=== PATIENT | female | born 1965 | race Caucasian/White ===

== ENCOUNTER → 2017-02-23 | Outpatient (CLI) | payer OTHER ==
--- NOTE | 2017-02-23 12:25 | ECHOF ---
Referral Reason:R07.89 chest paijn R01.1 cardiac murmur MEASUREMENTS -------- HEIGHT: 160.0 cm WEIGHT: 71.7 kg BP: 111/69 RVIDd: 3.2 cm (< 3.3) IVSd: 1.1 cm (0.6 - 1.1) LVIDd: 4.4 cm (3.9 - 5.3) LVPWd: 1.1 cm (0.6 - 1.1) IVSs: 1.8 cm LVIDs: 3.1 cm LVPWs: 1.5 cm LA Diam: 3.3 cm (2.7 - 3.8) LAESV Index (A-L): 25.47 ml/m Ao Diam: 2.7 cm (2.0 - 3.7) AV Cusp: 1.5 cm (1.5 - 2.6) LA Diam: 2.7 cm (2.7 - 3.8) MV EXCURSION: 13.883 mm (> 18.000) MV EF SLOPE: 103 mm/s (70 - 150) EPSS: 0.9 cm MV E Kole: 0.94 m/s MV DecT: 222 ms MV A Kole: 0.49 m/s MV E/A Ratio: 1.93 FINDINGS -------- Sinus rhythm. This was a technically good study. The left ventricular size is normal. There is borderline concentric left ventricular hypertrophy. Overall left ventricular systolic function is normal with, an EF between 55 - 60 %. The right ventricle is normal in size. Normal LA size by volume 22+/-6 ml/m2. The right atrium is normal in size. The aortic valve is trileaflet and appears structurally normal. The mitral valve leaflets are mildly thickened. Moderate mitral regurgitation is present. The tricuspid valve appears structurally normal. Trace tricuspid regurgitation present. Trace/mild (physiologic) pulmonic regurgitation. The aortic root size is normal. Normal inferior vena cava with normal inspiratory collapse consistent with estimated right atrial pressure of 5 mmHg. Echo free space may represent effusion or a pericardial fat pad. CONCLUSIONS -------- 1. Sinus rhythm. 2. The aortic root size is normal. 3. Normal inferior vena cava with normal inspiratory collapse consistent with estimated right atrial pressure of 5 mmHg. 4. Echo free space may represent effusion or a pericardial fat pad. 5. This was a technically good study. 6. There is borderline concentric left ventricular hypertrophy. 7. Overall left ventricular systolic function is normal with, an EF between 55 - 60 %. 8. Normal LA size by volume 22+/-6 ml/m2. 9. The mitral valve leaflets are mildly thickened. 10. Moderate mitral regurgitation is present. 11. Trace tricuspid regurgitation present. 12. Trace/mild (physiologic) pulmonic regurgitation. COIL WINDER: Ruth Goldman RDCS
--- NOTE | 2017-02-23 13:14 | EST ---
DATE OF SERVICE: 02/23/2017 AGE: 51Y SEX: F HT: 63 WT: 158 lbs. Protocol Marcus: Other: Lexiscan Cardiolite Stage: Dur. of Exercise: *Heart Rate Blood Pressure *Rest: 85 Rest: 127/75 * *Max. Achieved: 96 Maximum BP: 125/79 85% PMHR: 100% PMHR: *METS: INDICATIONS: Chest pain. MEDICATIONS: Atenolol. Baseline rhythm is a sinus mechanism, rate of 85, normal axis and intervals, nonspecific ST-T wave changes. Baseline blood pressure 127/75 mmHg. Patient received an injection of Lexiscan. Electrocardiograph monitoring revealed no evidence of diagnostic ischemic ST deviation Cardiolite was injected per protocol. CONCLUSION: 1. Nondiagnostic electrocardiograph stress testing. 2. Nuclear images will be reported separately.
--- NOTE | 2017-02-23 13:28 | NM ---
EXAMINATION TYPE: NM stress cardiolite complete DATE OF EXAM: 02/23/2017 1:16 PM COMPARISON: NONE HISTORY: Chest pain TECHNIQUE: After the intravenous administration of 10.8 mCi Tc 99m Sestamibi - Cardiolite resting SPECT images obtained 45 minutes post injection. The patient received 0.4mg Lexiscan, 27.3 mCi Tc99m Sestamibi - Stress images obtained 30 Minutes Post Injection. FINDINGS: Targeted heart rate was achieved during performance of the study. Review of stress and rest SPECT images demonstrates no distinct perfusion abnormality. Gated analysis shows normal wall motion with an estimated left ventricular ejection fraction of 50 %. Findings are suspicious for a small area of stress-induced reversibility apical anterior myocardium. IMPRESSION: Small subtle focal area of stress-induced reversibility apical anterior myocardium suggested. Correlate clinically. A Yellow message has been communicated to Sanjeev Mtz MD via the [employer] Critical Result system on 02/23/2017 1:26 PM, Message ID [id number]. MTDD
== END | disposition home or self-care (01) ==
LOC: RADNMMAIN 10:04
PROVIDERS: ATTEND Family Medicine
DX: R01.1 Cardiac murmur, unspecified (principal)
CPT/HCPCS: 93017; 93306; 78452; A9500

== ENCOUNTER 2017-03-20 06:34 | Day surgery (SDC) | payer OTHER ==
[2017-03-17 08:44] VITALS: BMI 28.3
[~2017-03-20 06:34] MED LIST: ALPRAZolam 0.25 MG TAB PO PRN; ALPRAZolam 0.5 MG TAB PO PRN; ASPIRIN 325 MG TAB PO STA; ATORVASTATIN 80 MG TAB PO STA; NITROGLYCERIN SL TABS 0.4 MG TAB SUBLINGUAL PRN; SODIUM CHLORIDE 0.9% 1,000 ML in EMPTY BAG 1 BAG IV ONE
[2017-03-20 06:54] VITALS: TEMP 98.2
[2017-03-20 07:04] LABS: Basophils # (A) 0.1 k/uL (0-0.2); Basophils % (A) 1 %; CH 34.7; CHCM 35.2; Eosinophils # (A) 0.4 k/uL (0-0.7); Eosinophils % (A) 4 %; HCT 40.4 % (34.0-46.0); HDW 2.46; HGB 14.2 gm/dL (11.4-16.0); Luc # (Auto) 0.23; Luc % (Auto) 2; Lymphocytes # (A) 3.2 k/uL (1.0-4.8); Lymphocytes % (A) 30 %; MCH 34.7 pg (25.0-35.0); MCHC 35.1 g/dL (31.0-37.0); MCV 98.8 fL (80.0-100.0); Mean Platelet Volume 7.3; Monocytes # (A) 0.4 k/uL (0-1.0); Monocytes % (A) 4 %; Neutrophils # (A) 6.3 k/uL (1.3-7.7); Neutrophils % (A) 59 %; RBC 4.09 m/uL (3.80-5.40); RDW 13.1 % (11.5-15.5); WBC 10.6 k/uL (3.8-10.6); WBC (Perox) 10.57
[2017-03-20] MEDS ORDERED: LIDOCAINE 2% INJ 20 MG/ML (20 ML MDV) ONE (07:16)
[2017-03-20] MEDS ORDERED: MIDAZOLAM 2 MG/2 ML VIAL ONE (07:23)
[2017-03-20] MEDS ORDERED: diphenhydrAMINE 50 MG/ML 1 ML VIAL ONE (07:24)
[2017-03-20] MEDS ORDERED: diphenhydrAMINE 50 MG/ML 1 ML VIAL IVP ONE (07:28)
[2017-03-20] MEDS ORDERED: MIDAZOLAM 2 MG/2 ML VIAL IV ONE (07:29)
[2017-03-20] MEDS ORDERED: LIDOCAINE 2% INJ 20 MG/ML SQ ONE ×2 (07:30→07:36)
[2017-03-20 07:31] LABS: Anion Gap 14 mmol/L; Blood Urea Nitrogen 3 mg/dL (7-17); Calcium 9.5 mg/dL (8.4-10.2); Carbon Dioxide 20 mmol/L (22-30); Chloride 108 mmol/L (98-107); Glucose 134 mg/dL (74-99); Non-African American GFR(MDRD) >60 (>60 ml/min/1.73 sqM); Potassium 3.6 mmol/L (3.5-5.1); Sodium 142 mmol/L (137-145)
[2017-03-20] MEDS ORDERED: HEPARIN SODIUM 1,000 UNIT/ML VIAL ONE (08:05)
[2017-03-20] MEDS ORDERED: NITROGLYCERIN 1000MCG/10ML SYRINGE INTRAARTER ONE (08:10)
[2017-03-20] MEDS ORDERED: ADENOSINE 90 MG in SODIUM CHLORIDE 0.9% 60 ML IVP ONE (08:18)
[2017-03-20] MEDS ORDERED: RX INFO: IV CONTRAST WAS GIVEN 1 EACH MISC MISCELLANE PRN (08:31)
[2017-03-20] MEDS ORDERED: HYDROcodone/APAP 7.5-325MG 1 EACH TAB PO PRN (08:32)
--- NOTE | 2017-03-20 08:32 | CC ---
DATE OF SERVICE: INDICATION: Chest pain with abnormal stress test. PROCEDURE NOTE: After obtaining informed consent, left heart catheterization and coronary angiogram were performed via the right femoral artery using standard Rebecca catheters. Patient tolerated the procedure well without any obvious immediate complications. FINDINGS: 1. HEMODYNAMICS: Left ventricular end-diastolic pressure is 4 to 6 mm, there is no significant gradient across the aortic valve. 2. LEFT VENTRICULOGRAM: Left ventriculogram is not performed. 3. ANGIOGRAPHIC DATA: LEFT MAIN CORONARY ARTERY: Left main coronary artery appears calcified but is free of significant stenosis. It divides into LAD and circumflex coronary artery. Both LAD and the circ are heavily calcified. Circ is a codominant vessel, shows mild diffuse disease involving the proximal circ and the AV groove circ. LAD is a large vessel that wraps around the apex of the heart and just passed the diagonal branch, there is a focal area of narrowing, which is borderline lesion, seems to be around 50% to 60% at best. Right coronary artery is a large codominant vessel that shows diffuse atherosclerotic disease involving proximal and distal RCA. They are all around 40% stenosis. CONCLUSION: Borderline lesion in the LAD in a patient with chest pain and abnormal stress test showing ischemia involving the apex. PLAN: Dr. Dean, the on-call main galley scullion, will perform an FFR of the lesion. If the lesion is significant, he will stent the vessel. If not, we will continue to treat her with medical therapy.
--- NOTE | 2017-03-20 08:35 | LTR ---
March 20, 2017 RE: Lena Pandey Dear Sanjeev: I performed cardiac catheterization on Lena Pandey. A detailed catheterization note is enclosed for your records. In brief, the cardiac catheterization revealed a moderate lesion involving the mid LAD. The lesion does not seem critical, it is a borderline lesion. Hence, patient will undergo an FFR and if the FFR is significant, she will undergo stent placement. Thank you for giving us the privilege to participate in the care of this pleasant lady. Will keep you informed of the progress. Sincerely, DONNA BARTHOLOMEW MD
[2017-03-20] MEDS ORDERED: IOHEXOL 350 MG/ML 125ML BOTTLE INJ ONE (08:38)
[2017-03-20] MEDS ORDERED: SODIUM CHLORIDE 0.9% 1,000 ML IV SCH (08:45)
[2017-03-20 08:56] VITALS: RESP 16
--- NOTE | 2017-03-20 14:48 | CE ---
DATE OF SERVICE: FRACTION FLOW RESERVE Mr. Pandey a 51-year-old female with known history of hypertension, hyperlipidemia, chronic tobacco use, who has been having episode of chest discomfort, underwent cardiac catheterization by Dr. Edge was found to have borderline lesion in the mid LAD. In view of that, recommendation was made regarding fractional flow reserve measurement. The procedure as well as the risks and complications were discussed with the patient who is in full understanding and agreement. PROCEDURE: Using the [place] FR4 guiding catheter, after obtaining images of the LAD the Doppler flow wire was advanced across the lesion positioned distally. Infusion of intravenous adenosine was performed per protocol. The fraction flow reserve was measured and was 82%. At that point, the guiding wire, the balloon and the guidewire were removed. The sheath was removed. Hemostasis was obtained with compression of the left groin. There were no immediate complications. Patient is returned to her room in stable condition. Of note, the patient received 5000 units of intravenous heparin. RESULT: Nonhemodynamic significant lesion in the mid left anterior descending artery. RECOMMENDATIONS: Patient will be continued on maximum medical therapy and depending on her progress, further recommendation will be made. Those findings and recommendations were discussed with the patient and her family and they are in full understanding and agreement.
--- NOTE | 2017-03-20 14:51 | LTR ---
March 20, 2017 CATHY GARZA MD RE: Katherin Lena D Dear Dr. Garza: I had the opportunity to perform fractional flow reserve measurement on Mrs. Pandey at [facility] on the 20 of March. A full copy of the procedure note will be forwarded to you. In brief, she was found to have nonhemodynamic significant lesion in the mid LAD and based on those findings, I recommend to continue medical therapy with aggressive coronary risk modifications you have initiated. Thank you again for allowing me the opportunity to participate in her care. Please feel free to call for any questions. Sincerely yours, RAND RICHARDSON MD
[2017-03-20 17:14] VITALS: BP 147/66; PULSE 78
[2017-03-20] MEDS ORDERED: VENLAFAXINE HCL 75 MG TAB PO SCH (21:00)
[2017-03-20] MEDS ORDERED: MONTELUKAST 10 MG TAB PO SCH (21:00)
[2017-03-21] MEDS ORDERED: ISOSORBIDE DINITRATE 10 MG TAB PO SCH (09:00)
[2017-03-21] MEDS ORDERED: LORATADINE 10 MG TAB PO SCH (09:00)
[2017-03-21] MEDS ORDERED: ATENOLOL 25 MG TAB PO SCH (09:00)
[2017-03-21] MEDS ORDERED: ATORVASTATIN 20 MG TAB PO SCH (09:00)
[2017-03-21] MEDS ORDERED: ASPIRIN 81 MG CHEW PO SCH (09:00)
== END 2017-03-20 18:00 | disposition home or self-care (01) ==
LOC: CATHCVL 06:34
PROVIDERS: ATTEND Internal Medicine Cardiovascular Disease
DX: I25.10 Atherosclerotic heart disease of native coronary artery without angina pectoris (principal); I10 Essential (primary) hypertension; F17.210 Nicotine dependence, cigarettes, uncomplicated; E78.2 Mixed hyperlipidemia; Z79.82 Long term (current) use of aspirin; Z79.899 Other long term (current) drug therapy
CPT/HCPCS: 93571; 93458; 80048; 85025; 99152; 99153 ×3; C1887; C1894; C1769; J2001; J2250; J1200; J0153; J1644; Q9967

== ENCOUNTER → 2017-03-23 | Outpatient (CLI) | payer OTHER ==
--- NOTE | 2017-03-23 11:58 | USB ---
Reason for exam: additional evaluation requested from prior study. History: Patient is nulliparous. Cyst aspiration of the right breast. Physical Findings: Nurse Summary: multiple scarring from boils (nurse jal). US Breast Workup LT Left breast ultrasound includes all four quadrants, the retroareolar region and axilla. Finding demonstrates several lesions too small to characterize measuring 0.3 x 0.2 x 0.3cm at 1 o'clock, 0.2 x 0.2 x 0.4cm at 2 o'clock, 0.4 x 0.6 x 0.4cm at 3 o'clock, 0.4cm at 3 o'clock and 0.3 x 0.2 x 0.5cm at 10 o'clock and a 1.1 x 0.6 x 0.6cm solid lesion at 2 o'clock, possible prominent lobe for which a 6 month follow up is recommended, if any suspicious changes, biopsy can be performed. These results were verbally communicated with the patient and result sheet given to the patient on 03/23/17. ASSESSMENT: Probably benign, BI-RAD 3 RECOMMENDATION: Follow-up diagnostic mammogram and ultrasound of the left breast in 6 months.
== END | disposition home or self-care (01) ==
LOC: RADUSWWP 08:22
PROVIDERS: ATTEND Family Medicine
DX: R92.8 Other abnormal and inconclusive findings on diagnostic imaging of breast (principal)

== ENCOUNTER → 2017-03-28 | Outpatient (CLI) | payer OTHER ==
--- NOTE | 2017-03-28 12:59 | US ---
EXAMINATION TYPE: US liver DATE OF EXAM: 03/28/2017 11:46 AM COMPARISON: NONE CLINICAL HISTORY: R16.0 Hepatomegaly. EXAM MEASUREMENTS: Liver Length: 18.9 cm Gallbladder Wall: 0.4 cm CBD: 0.6 cm Right Kidney: 10.9 x 3.6 x 4.9 cm Pancreas: visualized portions wnl Liver: measures 18.9 cm Gallbladder: wall measures 0.4 cm Evidence for sonographic Troncoso's sign: No CBD: measures 0.6 cm Right Kidney: No hydronephrosis or masses seen Visualized liver is heterogeneous in appearance. Evaluation for focal masses suboptimal due to the he terogeneity. No intrahepatic ductal dilatation is seen. IMPRESSION: Slight heterogeneity of liver could reflect fatty infiltration or underlying felt cellula r disease.
== END | disposition home or self-care (01) ==
LOC: RADUSWWP 10:53
PROVIDERS: ATTEND Family Medicine
DX: K76.89 Other specified diseases of liver (principal); R16.0 Hepatomegaly, not elsewhere classified
CPT/HCPCS: 76705

== ENCOUNTER → 2018-03-28 | Outpatient (CLI) | payer OTHER ==
[2018-03-28 17:08] LABS: Blood Urea Nitrogen 5 mg/dL (7-17)
--- NOTE | 2018-03-28 18:16 | CT ---
EXAMINATION TYPE: CT angio neck DATE OF EXAM: 03/28/2018 HISTORY: Carotid stenosis. COMPARISON: NONE CT DLP: 233.6 mGycm. Automated Exposure Control for Dose Reduction was Utilized. TECHNIQUE: CTA scan of the neck is performed with IV Contrast, patient injected with 65ml mL of Isov ue 370, axial images are obtained, coronal and sagittal reformatted images are reviewed. Three-D thea nstructed images are created on an independent workstation and reviewed. FINDINGS: Hypertrophic and degenerative change of the spine noted. Emphysematous changes involving th e lung apices noted. Single 4 mm pleural-based nodule left upper lobe. Ill-defined nodule right upper lobe posteriorly pleural-based likely postinflammatory. At the origin of the brachiocephalic artery there is an approximate 60% stenosis. Mild atheroscleroti c plaque involving left subclavian origin. Within the proximal left subclavian artery there is additi onal atherosclerotic plaque. There is dense calcification involving the carotid bifurcations bilaterally. On the right findings are suggestive of a greater than 70% severe stenosis involving the proximal rig ht ICA. Mild atherosclerotic plaque involving the external carotid artery. On the left there is a significant stenosis involving the origin of the external carotid artery. Ther e is moderate plaque involving the distal common carotid artery and proximal ICA with no definite sig nificant hemodynamic stenosis. Estimated stenosis proximal ICA of 50%. Left vertebral artery appears dominant. Visualized vertebrobasilar system is patent. Intracranial ath erosclerotic change involving the cavernous portion of the ICA noted bilaterally. IMPRESSION: 1. Severe greater than 70% stenosis proximal right ICA. Note is made there also appears to be soft pl aque and stenotic changes involving the origin of the brachiocephalic artery measuring approximately 50-60%. 2. Moderate atherosclerotic plaque distal CCA and proximal ICA on the left measuring 50% or less. 3. 4 mm left upper lobe pleural-based pulmonary nodule too small to characterize recommend 6 month fo llow-up CT chest.
== END | disposition home or self-care (01) ==
LOC: RADCTMAIN 15:58
PROVIDERS: ATTEND Internal Medicine Cardiovascular Disease
DX: I65.23 Occlusion and stenosis of bilateral carotid arteries (principal)
CPT/HCPCS: 82565; 84520; 70498; 36415; Q9967

== ENCOUNTER → 2018-07-06 | Outpatient (CLI) | payer OTHER ==
[2018-07-06 12:41] LABS: HCT 45.6 % (34.0-46.0); HGB 15.1 gm/dL (11.4-16.0); MCH 32.5 pg (25.0-35.0); MCHC 33.1 g/dL (31.0-37.0); MCV 98.1 fL (80.0-100.0); Mean Platelet Volume 6.5; Platelet Count 327 k/uL (150-450); RBC 4.65 m/uL (3.80-5.40); RDW 12.8 % (11.5-15.5); WBC 8.6 k/uL (3.8-10.6)
[2018-07-06 12:46] LABS: Appearance,Urine Cloudy (Clear); Bilirubin,Urine Negative (Negative); Blood,Urine Negative (Negative); Color,Urine Yellow; Glucose,Urine (UA) Negative (Negative); Ketones,Urine Negative (Negative); Leukocyte Esterase,Urine Large (Negative); Mucus,Urine Occasional /hpf; Nitrite,Urine Negative (Negative); Partial Thromboplastin Time 22.9 sec (22.0-30.0); Protein,Urine Negative (Negative); Prothrombin Time 9.8 sec (9.0-12.0); RBC,Urine 3 /hpf (0-5); Specific Gravity,Urine 1.012 (1.001-1.035); Squamous Epithelial Cell,Urine 4 /hpf (0-4); Urobilinogen,Urine <2.0 mg/dL (<2.0); WBC,Urine 13 /hpf (0-5)
[2018-07-06 12:59] LABS: ALT 32 U/L (9-52); AST 34 U/L (14-36); Albumin 4.6 g/dL (3.5-5.0); Alkaline Phosphatase 98 U/L (38-126); Anion Gap 11 mmol/L; Blood Urea Nitrogen 5 mg/dL (7-17); Calcium 10.1 mg/dL (8.4-10.2); Carbon Dioxide 26 mmol/L (22-30); Chloride 103 mmol/L (98-107); Glucose 103 mg/dL (74-99); Potassium 4.9 mmol/L (3.5-5.1); Sodium 140 mmol/L (137-145); Total Bilirubin 0.4 mg/dL (0.2-1.3); Total Protein 7.6 g/dL (6.3-8.2)
== END | disposition home or self-care (01) ==
LOC: LABPAT 11:45
PROVIDERS: ATTEND Orthopaedic Surgery
DX: Z01.812 Encounter for preprocedural laboratory examination (principal)
CPT/HCPCS: 36415; 80053; 81001; 85027; 85610; 85730; 87070

== ENCOUNTER 2018-07-17 08:20 | Inpatient (IN) | payer OTHER ==
[2018-07-09 12:12] VITALS: BMI 27.8
[~2018-07-17 08:20] MED LIST changes: +ACETAMINOPHEN TAB 500 MG TAB PO ONE; -ALPRAZolam 0.25 MG TAB PO PRN; -ALPRAZolam 0.5 MG TAB PO PRN; -ASPIRIN 325 MG TAB PO STA; -ATORVASTATIN 80 MG TAB PO STA; +DEXAMETHASONE SOD PHOSPHATE 10 MG/ML 1 ML VIAL IV ONE; +LIDOCAINE 1% 20 ML VIAL (10MG/ML) FOR IV START INTRADERMA PRN; +MELOXICAM 7.5 MG TAB PO ONE; +MIDAZOLAM 2 MG/2 ML VIAL IV PRN; -NITROGLYCERIN SL TABS 0.4 MG TAB SUBLINGUAL PRN; +ONDANSETRON 4 MG/2 ML VIAL IVP ONE; +ROPIVACAINE 246.25 MG, EPINEPHrine 0.5 MG, KETOROLAC 30 MG, cloNIDine HCL/PF 80 MCG, WA... MISCELLANE ONE; -SODIUM CHLORIDE 0.9% 1,000 ML in EMPTY BAG 1 BAG IV ONE; +TRANEXAMIC ACID 1,000 MG in SODIUM CHLORIDE 0.9% 50 ML IVPB ONE; +ceFAZolin IN SWFI 2 GM/20 ML SYRINGE IVP ONE
[2018-07-17] MEDS: LACTATED RINGERS 1,000 ML IV SCH ×2 (09:04→14:11)
[2018-07-17] MEDS ORDERED: TRANEXAMIC ACID 1,000 MG/10 ML VIAL ONE (09:45)
[2018-07-17] MEDS ORDERED: HEPARIN SODIUM,PORCINE 10,000 UNIT/ML 1 ML VIAL ONE (09:45)
[2018-07-17] MEDS ORDERED: SODIUM CHLORIDE 0.9% 100 ML BAG ONE (09:45)
[2018-07-17] MEDS ORDERED: fentaNYL (PF) 50 MCG/ML 2 ML AMP ONE (09:45)
[2018-07-17] MEDS ORDERED: PROPOFOL 10 MG/ML 20 ML VIAL IV ONE (09:45)
[2018-07-17] MEDS ORDERED: MIDAZOLAM 2 MG/2 ML VIAL ONE (09:45)
[2018-07-17] MEDS ORDERED: SODIUM CHLORIDE 0.9% IRRIG 1,000 ML BTL IRRIGATION ONE (09:45)
[2018-07-17] MEDS ORDERED: MAGNESIUM HYDROXIDE 2,400 MG/10 ML CUP PO PRN (09:51)
[2018-07-17] MEDS ORDERED: DIAZEPAM 5 MG TAB PO PRN ×2 (09:51)
[2018-07-17] MEDS ORDERED: HYDROmorphone 1 MG/ML 1 ML SYRINGE IVP PRN ×3 (09:51)
[2018-07-17] MEDS ORDERED: NALOXONE 0.4 MG/ML 1 ML VIAL IV PRN (09:51)
[2018-07-17] MEDS ORDERED: ONDANSETRON 4 MG/2 ML VIAL IVP PRN (09:51)
[2018-07-17] MEDS ORDERED: HYDROcodone/APAP 5-325MG 1 EACH TAB PO PRN (09:51)
[2018-07-17] MEDS ORDERED: ceFAZolin 3,000 MG in SODIUM CHLORIDE 0.9% IRRIGATIO 3,000 ML IRRIGATION ONE (10:22)
[2018-07-17] MEDS ORDERED: LACTATED RINGERS 1,000 ML IV ONE (10:59)
--- NOTE | 2018-07-17 12:11 | P.OP ---
Date of Procedure: 07/17/18 Preoperative Diagnosis: Severe osteoarthritis right hip Postoperative Diagnosis: Severe osteoarthritis right hip Procedure(s) Performed: Right total hip arthroplasty with a direct anterior approach Implants: Genao and nephew Polarstem size 3 standard Gen[employer] Nephew R3, 3 hole acetabular shell, 48 mm [employer]hew reflection 6.5 mm cancellus screw, 20 mm 2 [employer]hew R3, XLPE 20 acetabular liner Gen[employer] Nephew Oxinium femoral head 32 m, +0 All components were press-fit. The articulation is Oxinium on polyethylene. Anesthesia: spinal Surgeon: Fabian Sauer Back End Engineer #1: Kyra Kimbrough Estimated Blood Loss (ml): 200 (61 mL returned with Cell Saver) Pathology: other (Femoral head) Condition: stable Disposition: PACU Indications for Procedure: After failure of conservative treatment we discussed the surgical and nonsurgical treatment options at length. Patient wishes to proceed with a total hip arthroplasty with a direct anterior approach. Complications specific to this procedure were discussed at length, including but not limited to infection, leg length discrepancy, dislocation, and nerve injury. Patient is aware of all these complications and informed consent was obtained Operative Findings: Operative findings are consistent with severe osteoarthritis of the right hip Description of Procedure: Patient was seen and evaluated in the preoperative area, consent was reviewed, and the surgical site was marked with a skin marker. Patient was then brought to the operating room and given prophylactic antibiotics intravenously. 1 g of Tranexamic acid was also given. A spinal anesthetic was administered by the anesthesia department. The patient was then placed on the [place] table with the bony prominences well-padded. The hip area was then prepped and draped in usual sterile fashion. A universal timeout was then performed, which confirmed the patient's name, surgical site, ALLERGIES, and procedure being performed. Next the incision site was located at 1 cm distal and 1 cm lateral to the anterior superior iliac spine. The skin and subcutaneous tissues were sharply incised. Incision was carefully dissected down to the fascia overlying the tensor fascia tania muscle. This fascia was then incised in line with the incision. Next, using blunt finger dissection, the tensor fascia tania muscle was dissected off its investing fascia. The muscle was then carefully retracted laterally with a cobra retractor over the lateral neck of the femur. Next, the circumflex vessels were identified and cauterized using the AquaMantis device. The anterior hip capsule was then exposed. The capsule was then opened and an inverted T fashion. Cobra retractors were then placed intracapsularly. The proximal femur was then visualized. The femoral neck was then osteotomized appropriate level above the lesser trochanter. Small amount of traction was placed with the [place] table. A small wedge of bone was then removed from the remaining femoral head. Next, using a corkscrew femoral head was easily removed from the acetabulum. On gross visual inspection, the femoral head had complete loss of articular cartilage in multiple periarticular osteophytes. Attention was then turned to the acetabulum. the acetabulum was exposed and any remaining labrum was excised. Sequential reaming of the acetabulum was performed using fluoroscopic guidance. When the appropriate size was reached, a trial was then placed. The position and fit of the trial was checked with fluoroscopy. The trial was then removed. Then, using fluoroscopic guidance, the final implant was impacted at 20 of anteversion and 40 of abduction, and fully seated in the acetabulum. 2 screws were then placed in the acetabulum. Again fluoroscopy was used to check position of the screws. Next, the liner was then impacted, with a 20 elevated liner located in the anterior superior quadrant. Component locking was confirmed. Attention was then directed to the femur. With the aid of the [place] table, the femur was externally rotated to approximately 130, extended, and abducted under the opposite leg. A side hook was then placed under the proximal femur, and the side hook elevator was used to elevate the proximal femur. Retractors were then placed. A capsular release was performed, as well as a release of the conjoined tendon, which afforded excellent visualization of the proximal femur. Next, a box osteotome was used to lateralize the proximal femur. A tie in hand was then used to locate the femoral canal. Sequential broaching was then performed with appropriate size which afforded excellent fixation in the proximal femur. A trial was then placed with appropriate head and neck, and the hip was gently reduced with the aid of the [place] table. Fluoroscopy was then used to check position of the components, as well as to ensure equal leg lengths. The hip was then gently dislocated and the trials were then removed. Final implants were then impacted and the hip was again reduced. Final fluoroscopic x-rays confirmed that the components were in anatomic position, as well as equal leg lengths. The hip was also taken through range of motion, and found to be stable. The hip was then copiously irrigated with antibiotic solution with pulsatile lavage. The hip was then irrigated with Irrisept solution. The soft tissues were then injected with a ropivacaine solution, which consisted of 246.25 mg of ropivacaine, 0.5 mg of epinephrine, 30 mg of Toradol, 80 g of clonidine, and 48.45 mL of sterile water, for a total of 100 mL of fluid injected. A second dose of 1 g of Tranexamic acid was also given. the fascia was then closed with 2-0 strata fix suture. The subcutaneous tissue was closed with 3-0 Vicryl. The subcuticular tissue was closed with 3-0 strata fix suture. The skin was then closed with Dermabond glue and a sterile silver dressing. The patient was then transferred to the recovery room in stable condition. The customer assistant YAIR Cooney was required due to the complexity of surgery, and the need for skilled director surgical for positioning, draping, exposure, retraction, and closure of the wound.
[2018-07-17] MEDS: fentaNYL (PF) 50 MCG/ML 2 ML AMP IV PRN ×4 (12:20→13:32)
--- NOTE | 2018-07-17 12:31 | XR ---
EXAMINATION TYPE: XR Hip Limited RT DATE OF EXAM: 07/17/2018 CLINICAL HISTORY: Right hip pain and osteoarthritis. TECHNIQUE: Single AP portable view of right hip is obtained immediately postoperatively. COMPARISON: None. FINDINGS: Metallic hardware from right hip arthroplasty is seen and appears satisfactory in alignment and position. There is evidence of recent surgery with subcutaneous gas noted laterally. IMPRESSION: Metallic hardware from right hip arthroplasty is satisfactory in position.
--- NOTE | 2018-07-17 12:48 | FL ---
EXAMINATION TYPE: FL guidance operating room DATE OF EXAM: 07/17/2018 HISTORY: Flouroscopy time 1 minute and 13 seconds of fluoroscopy provided. IMPRESSION: 1. Fluoroscopy time.
[2018-07-17] MEDS: SODIUM CHLORIDE 0.9% 1,000 ML IV SCH ×2 (14:10→23:27)
[2018-07-17] MEDS: HYDROcodone/APAP 5-325MG 1 EACH TAB PO PRN ×2 (14:20→19:29)
[2018-07-17] MEDS: ceFAZolin IN SWFI 2 GM/20 ML SYRINGE IVP SCH ×2 (15:07→23:23)
[2018-07-17] MEDS: ASPIRIN 325 MG TAB PO SCH (20:28)
[2018-07-17] MEDS: VARENICLINE 1 MG TAB PO SCH (20:28)
[2018-07-17] MEDS: MONTELUKAST 10 MG TAB PO SCH (20:28)
[2018-07-17] MEDS: SENNOSIDES-DOCUSATE SODIUM 1 EACH TAB PO SCH (20:28)
[2018-07-18] MEDS: HYDROcodone/APAP 5-325MG 1 EACH TAB PO PRN ×4 (00:49→20:40)
[2018-07-18] MEDS: hydrOXYzine PAMOATE 25 MG CAP PO PRN ×2 (00:49→20:39)
[2018-07-18 07:28] LABS: Basophils % (A) 0 %; Eosinophils % (A) 0 %; HCT 34.6 % (34.0-46.0); Lymphocytes # (A) 1.5 k/uL (1.0-4.8); Lymphocytes % (A) 13 %; MCH 32.6 pg (25.0-35.0); MCV 98.8 fL (80.0-100.0); Mean Platelet Volume 6.4; Monocytes # (A) 0.6 k/uL (0-1.0); Monocytes % (A) 5 %; Neutrophils % (A) 81 %; Platelet Count 259 k/uL (150-450); RDW 12.6 % (11.5-15.5); WBC 11.2 k/uL (3.8-10.6)
[2018-07-18 07:40] LABS: HGB 11.4 gm/dL (11.4-16.0)
[2018-07-18 07:45] LABS: Anion Gap 8 mmol/L; Blood Urea Nitrogen 9 mg/dL (7-17); Calcium 8.8 mg/dL (8.4-10.2); Carbon Dioxide 22 mmol/L (22-30); Chloride 109 mmol/L (98-107); Glucose 113 mg/dL (74-99); Potassium 4.3 mmol/L (3.5-5.1); Sodium 139 mmol/L (137-145)
[2018-07-18] MEDS: LORATADINE 10 MG TAB PO SCH (08:11)
[2018-07-18] MEDS: ISOSORBIDE MONONITRATE ER 30 MG TAB.ER.24H PO SCH (08:11)
[2018-07-18] MEDS: ASPIRIN 325 MG TAB PO SCH ×2 (08:11→20:39)
[2018-07-18] MEDS: ATENOLOL 25 MG TAB PO SCH (08:11)
[2018-07-18] MEDS: ATORVASTATIN 20 MG TAB PO SCH (08:11)
[2018-07-18] MEDS: MELOXICAM 7.5 MG TAB PO SCH (08:11)
[2018-07-18] MEDS: DESVENLAFAXINE SUCCINATE 50 MG TAB.ER.24H PO SCH (08:11)
[2018-07-18] MEDS: VARENICLINE 1 MG TAB PO SCH ×2 (08:11→20:40)
--- NOTE | 2018-07-18 08:55 | P.PN ---
Subjective Progress Note Date: 07/18/18 This is a 52-year-old female who is status post right total hip arthroplasty. This is postoperative day #1. Patient is seen and evaluated at bedside with Dr. Fabian Sauer. Patient does complain of some numbness in the right leg. Patient states that she has been up and out of bed. Patient states that her pain is controlled. Patient denies any fever/chills, numbness, weakness, tingling, abdominal pain, shortness of breath or chest pain. Objective - Vital Signs Vital signs: Vital Signs Temp 98.1 F 07/18/18 07:10 Pulse 77 07/18/18 07:10 Resp 18 07/18/18 07:10 BP 135/68 07/18/18 07:10 Pulse Ox 96 07/18/18 07:10 Intake & Output 07/17/18 07/18/18 07/18/18 18:59 06:59 18:59 Intake Total 1401 1340 Output Total 200 Balance 1201 1340 Weight 71.214 kg Intake: IV 1401 Intake, IV Titration 1040 Amount Sodium Chloride 0.9% 1, 1040 000 ml @ 65 mls/hr IV . [id number] GEOVANI Rx#:[id number] Other 300 Output: Estimated Blood Loss 200 Other: # Voids 2 - Exam Vital signs are stable. Patient is in no acute distress and is alert and oriented 3. Calf is soft and nontender to palpation. Dressing is clean, dry, and intact. Patient has full foot and ankle motion without pain or difficulty. Neurovascular status and circulatory status are intact. - Labs CBC & Chem 7: 07/18/18 06:41 07/18/18 06:41 Labs: Abnormal Lab Results - Last 24 Hours (Table) 07/18/18 07/18/18 Range/Units 06:41 06:41 WBC 11.2 H (3.8-10.6) k/uL RBC 3.50 L (3.80-5.40) m/uL Neutrophils # 9.0 H (1.3-7.7) k/uL Chloride 109 H (98-107) mmol/L Creatinine 0.42 L (0.52-1.04) mg/dL Glucose 113 H (74-99) mg/dL Assessment and Plan (1) Primary osteoarthritis of right hip Current Visit: Yes Status: Acute Code(s): M16.11 - UNILATERAL PRIMARY OSTEOARTHRITIS, RIGHT HIP SNOMED Code(s): 503066721 (2) Status post total hip replacement, right Current Visit: Yes Status: Acute Code(s): Z96.641 - PRESENCE OF RIGHT ARTIFICIAL HIP JOINT SNOMED Code(s): 083528993881 Plan: Continue routine postop care. Continue antocoagulation with aspirin. Weightbearing as tolerated with a walker. Leave dressing in place for 10 days. Possible discharge home tomorrow.
[2018-07-18] MEDS: LACTATED RINGERS 1,000 ML IV SCH (09:09)
--- NOTE | 2018-07-18 09:12 | P.CONS ---
History of Present Illness - Reason for Consult Consult date: 07/18/18 Medical Management Requesting physician: Fabian Sauer - Chief Complaint s/p right DEONDRE - History of Present Illness 52-year-old female who underwent elective right total hip arthroplasty on 07/17/[address] Mtz was consulted for medical management. The patient was seen and examined postoperatively at the bedside. Patient states her pain is tolerable at this time. She does report numbness to her right lower extremity. She has been up ambulating to the bathroom but has not yet ambulated in the hallway. Patient is passing gas but has not had a bowel movement yet. She is tolerating a regular diet. Denies nausea or vomiting. Denies shortness of breath. Denies chest pain. Denies lightheadedness or dizziness. Denies fever or chills. Review of Systems Those systems with pertinent positive or pertinent negative responses have been documented in the HPI Past Medical History Past Medical History: Chest Pain / Angina, Hyperlipidemia, Hypertension, Myocardial Infarction (CA), Osteoarthritis (OA) Last Myocardial Infarction Date:: 07/2009 History of Any Multi-Drug Resistant Organisms: None Reported Past Surgical History: Heart Catheterization, Orthopedic Surgery Additional Past Surgical History / Comment(s): lt elbow, lt wrist, rt ovary and fallopian tube removed Past Anesthesia/Blood Transfusion Reactions: No Reported Reaction Past Psychological History: Depression Smoking Status: Current some day smoker Past Alcohol Use History: Occasional Additional Past Alcohol Use History / Comment(s): started smoking at age 15 smokes 1 pack/wk Past Drug Use History: None Reported - Past Family History Mother Family Medical History: No Reported History Medications and Allergies Home Medications Medication Instructions Recorded Confirmed Type Aspirin EC [Ecotrin Low Dose] 81 mg PO DAILY 03/17/17 07/17/18 History Atenolol [Tenormin] 25 mg PO DAILY 03/17/17 07/17/18 History Atorvastatin Calcium [Lipitor] 20 mg PO DAILY 03/17/17 07/17/18 History Cetirizine HCl [Zyrtec] 10 mg PO DAILY 03/17/17 07/17/18 History HYDROcodone/APAP 7.5-325MG [[place] 1 tab PO TID PRN 03/17/17 07/17/18 History 7.5-325] Montelukast Sodium [Singulair] 10 mg PO HS 03/17/17 07/17/18 History Methocarbamol [Robaxin] 1,000 mg PO QID PRN 07/09/18 07/17/18 History Desvenlafaxine [Pristiq ER] 100 mg PO DAILY 07/17/18 07/17/18 History Isosorbide Mononitrate ER [Imdur] 30 mg PO DAILY 07/17/18 07/17/18 History Varenicline [Chantix Continuing 1 mg PO BID 07/17/18 07/17/18 History Pack] Allergies Allergy/AdvReac Type Severity Reaction Status Date / Time No Known Allergies Allergy Verified 07/17/18 11:25 Physical Exam Vitals: Vital Signs Temp Pulse Resp BP Pulse Ox 07/18/18 07:10 98.1 F 77 18 135/68 96 07/18/18 00:34 98.2 F 85 16 147/65 96 07/17/18 20:00 97.3 F L 74 18 123/71 96 07/17/18 14:15 70 135/61 07/17/18 14:00 65 99/62 07/17/18 13:45 98.0 F 75 16 130/70 95 07/17/18 13:37 73 16 151/83 94 L 07/17/18 13:15 57 L 16 120/58 94 L 07/17/18 13:00 64 16 116/54 94 L 07/17/18 12:45 68 16 135/61 94 L 07/17/18 12:32 56 L 16 140/63 93 L 07/17/18 12:16 50 L 16 124/60 97 07/17/18 12:05 62 16 124/60 96 07/17/18 11:49 97.0 F L 73 16 146/67 98 Intake and Output 07/17/18 07/18/18 07/18/18 22:59 06:59 14:59 Intake Total 520 820 Balance 520 820 Intake: Intake, IV Titration 520 520 Amount Sodium Chloride 0.9% 1, 520 520 000 ml @ 65 mls/hr IV . [id number] GEOVANI Rx#:[id number] Other 300 Other: # Voids 2 2 GENERAL: This is a 52-year-old female in no apparent distress at the time of examination. Pleasant and cooperative. HEENT: Head is atraumatic, normocephalic. Pupils are equal, round, and reactive to light. Sclerae anicteric. Conjunctivae are clear. Mucus membranes of the mouth are moist. Neck is supple. RESPIRATORY: Clear to ausculation. No wheezes, rales, or rhonchi. No use of accessory muscles. Patient maintaining oxygen saturation greater than 92%. No chest wall tenderness is noted on palpation or with deep breathing. CARDIOVASCULAR: Regular rate and rhythm. S1 and S2 noted. No systolic or diastolic murmur auscultated. No JVD noted. No S3 or S4 noted. GASTROINTESTINAL: No distention noted. Abdomen soft and round. Normal active bowel sounds auscultated x 4 quadrants. No pain or tenderness noted upon palpation. INTEGUMENTARY: Dressing to right hip CDI. No drainage noted. Some surrounding ecchymosis. No cyanosis. No jaundice. No rashes noted. No cellulitis noted. EXTREMITIES: 2+ peripheral pulses. No evidence of peripheral edema. No calf tenderness noted. NEUROLOGIC: Cranial nerves II-XII intact. Numbness to right LE extremity. Motor strength intact. PSYCHIATRIC: Awake, alert, and oriented X 3. Appropriate affect. Intact judgement and insight. Results CBC & Chem 7: 07/18/18 06:41 07/18/18 06:41 Labs: Abnormal Lab Results - Last 24 Hours (Table) 07/18/18 07/18/18 Range/Units 06:41 06:41 WBC 11.2 H (3.8-10.6) k/uL RBC 3.50 L (3.80-5.40) m/uL Neutrophils # 9.0 H (1.3-7.7) k/uL Chloride 109 H (98-107) mmol/L Creatinine 0.42 L (0.52-1.04) mg/dL Glucose 113 H (74-99) mg/dL Assessment and Plan Plan: ASSESSMENT: Osteoarthritis, status post right total hip arthroplasty, POD #1 History of coronary artery disease with most recent cath in 2017 revealing moderate lesion in the LAD and medical therapy was advised Hypertension Hyperlipidemia Nicotine dependence History of depression PLAN: Continue postoperative care per orthopedics Pain control Activity as tolerated. Encourage ambulation PT/OT Anticoagulation with aspirin per orthopedics Home meds as appropriate Monitor labs GI prophylaxis: Pepcid 20 mg by mouth twice a day DVT prophylaxis: [place] hose and SCDs to bilateral lower extremities Monitor vital signs and address as appropriate Possible discharge home with home care tomorrow Thank you for this consultation We will continue to follow along with Lena during her hospitalization Nurse practitioner note has been reviewed by physician. Signing provider agrees with the documented findings, assessment, and plan of care.
[2018-07-18] MEDS ORDERED: HYDROmorphone 2 MG TAB PO PRN ×2 (15:38)
[2018-07-18] MEDS: SODIUM CHLORIDE 0.9% 1,000 ML IV SCH (16:41)
[2018-07-18] MEDS: HYDROmorphone 4 MG TABLET PO PRN (19:18)
[2018-07-18] MEDS: FAMOTIDINE 20 MG TAB PO SCH (20:39)
[2018-07-18] MEDS: SENNOSIDES-DOCUSATE SODIUM 1 EACH TAB PO SCH (20:39)
[2018-07-18] MEDS: MONTELUKAST 10 MG TAB PO SCH (20:40)
[2018-07-19] MEDS: hydrOXYzine PAMOATE 25 MG CAP PO PRN ×2 (01:56→07:47)
[2018-07-19] MEDS: HYDROcodone/APAP 5-325MG 1 EACH TAB PO PRN ×2 (01:56→07:46)
[2018-07-19] MEDS: HYDROmorphone 4 MG TABLET PO PRN (06:06)
[2018-07-19 07:44] VITALS: BP 145/75; PULSE 73; RESP 18; TEMP 98.7
[2018-07-19] MEDS: MELOXICAM 7.5 MG TAB PO SCH (07:47)
[2018-07-19] MEDS: FAMOTIDINE 20 MG TAB PO SCH (07:47)
[2018-07-19] MEDS: ATORVASTATIN 20 MG TAB PO SCH (07:48)
[2018-07-19] MEDS: ISOSORBIDE MONONITRATE ER 30 MG TAB.ER.24H PO SCH (07:48)
[2018-07-19] MEDS: ATENOLOL 25 MG TAB PO SCH (07:48)
[2018-07-19] MEDS: ASPIRIN 325 MG TAB PO SCH (07:48)
[2018-07-19] MEDS: LORATADINE 10 MG TAB PO SCH (07:49)
[2018-07-19] MEDS ORDERED: HYDROcodone/APAP 7.5-325MG 1 EACH TAB PO PRN ×2 (08:47)
--- NOTE | 2018-07-19 08:52 | P.DS ---
Providers Date of admission: 07/17/18 08:20 Expected date of discharge: 07/19/18 Attending physician: Fabian Sauer Consults: 07/17/18 09:51 Consult Physician Routine Consulting Provider: Sanjeev Mtz Consult Reason/Comments: medical management Do you want consulting provider notified?: Yes Primary care physician: Sanjeev Mtz - Discharge Diagnosis(es) (1) Primary osteoarthritis of right hip Current Visit: Yes Status: Acute (2) Status post total hip replacement, right Current Visit: Yes Status: Acute Hospital Course: This is a 52-year-old female with known history of degenerative arthritis of the right hip. The patient presents for evaluation. After discussion and consideration patient elects to proceed with total hip arthroplasty. The patient is seen preoperatively by Dr. Sauer and medically cleared for surgery by their primary care physician. Patient is admitted to [facility] on 07/17/2018 for total hip arthroplasty. The procedures performed without complication or sequelae. The patient is doing well postoperatively. Labs and vital signs are stable on day of discharge. On day of discharge patient's hip incision is healing well. There is minimal erythema. There is no drainage noted at this time. There is minimal soft tissue swelling to the hip and thigh. Patient has full foot and ankle motion without difficulty or pain. Neurovascular status to the right lower extremity is intact. Patient is discharged home in good condition. Please see med rec for accurate list of home medications. Plan - Discharge Summary Discharge Rx Participant: Yes New Discharge Prescriptions: New Aspirin 325 mg PO BID #60 tab HYDROcodone/APAP 7.5-325MG [[place] 7.5-325] 1 - 2 tab PO Q4-6H PRN #84 tab PRN Reason: Pain Sennosides [Senokot] 1 tab PO BID #60 tablet Continue Montelukast Sodium [Singulair] 10 mg PO HS Atenolol [Tenormin] 25 mg PO DAILY Atorvastatin Calcium [Lipitor] 20 mg PO DAILY Varenicline [Chantix Continuing Pack] 1 mg PO BID Desvenlafaxine [Pristiq ER] 100 mg PO DAILY Isosorbide Mononitrate ER [Imdur] 30 mg PO DAILY No Action Aspirin EC [Ecotrin Low Dose] 81 mg PO DAILY Cetirizine HCl [Zyrtec] 10 mg PO DAILY HYDROcodone/APAP 7.5-325MG [[place] 7.5-325] 1 tab PO TID PRN PRN Reason: Pain Methocarbamol [Robaxin] 1,000 mg PO QID PRN PRN Reason: muscle relaxer Discharge Medication List Aspirin EC [Ecotrin Low Dose] 81 mg PO DAILY 03/17/17 [History] Atenolol [Tenormin] 25 mg PO DAILY 03/17/17 [History] Atorvastatin Calcium [Lipitor] 20 mg PO DAILY 03/17/17 [History] Cetirizine HCl [Zyrtec] 10 mg PO DAILY 03/17/17 [History] HYDROcodone/APAP 7.5-325MG [[place] 7.5-325] 1 tab PO TID PRN 03/17/17 [History] Montelukast Sodium [Singulair] 10 mg PO HS 03/17/17 [History] Methocarbamol [Robaxin] 1,000 mg PO QID PRN 07/09/18 [History] Desvenlafaxine [Pristiq ER] 100 mg PO DAILY 07/17/18 [History] Isosorbide Mononitrate ER [Imdur] 30 mg PO DAILY 07/17/18 [History] Varenicline [Chantix Continuing Pack] 1 mg PO BID 07/17/18 [History] Aspirin 325 mg PO BID #60 tab 07/19/18 [Rx] HYDROcodone/APAP 7.5-325MG [[place] 7.5-325] 1 - 2 tab PO Q4-6H PRN #84 tab [Rx] Sennosides [Senokot] 1 tab PO BID #60 tablet 07/19/18 [Rx] Follow up Appointment(s)/Referral(s): Sanjeev Mtz MD [Primary Care Provider] - 2 Weeks Fabian Sauer DO [Doctor of Osteopathic Medicine] - 2 Weeks Activity/Diet/Wound Care/Special Instructions: Weightbearing as tolerated with walker Leave dressing intact. Dressing may be removed by home care nurse in 10 days. May shower with dressing on. Follow-up with [facility] in 2 weeks, please call with any questions or concerns [phone] Discharge Disposition: HOME WITH HOME HEALTH SERVICES
[2018-07-19] MEDS: VARENICLINE 1 MG TAB PO SCH (10:17)
[2018-07-19] MEDS: DESVENLAFAXINE SUCCINATE 50 MG TAB.ER.24H PO SCH (10:17)
[2018-07-19] MEDS: SODIUM CHLORIDE 0.9% 1,000 ML IV SCH (10:26)
== END 2018-07-19 11:15 | disposition home health service (06) | DRG 470 ==
LOC: 2ORMAIN 08:20 → 3SUR 11:37
PROVIDERS: ADMIT Orthopaedic Surgery; ATTEND Orthopaedic Surgery
PROC: 30233N0 Transfusion of Autologous Red Blood Cells into Peripheral Vein, Percutaneous Approach (ICD-10-PCS; 2018-07-17)
PROC: 0SR906A Replacement of Right Hip Joint with Oxidized Zirconium on Polyethylene Synthetic Substitute, Uncemented, Open Approach (ICD-10-PCS; principal; 2018-07-17 09:50)
DX: M16.11 Unilateral primary osteoarthritis, right hip (principal); E78.5 Hyperlipidemia, unspecified; I10 Essential (primary) hypertension; I25.10 Atherosclerotic heart disease of native coronary artery without angina pectoris; F32.9 Major depressive disorder, single episode, unspecified; I25.2 Old myocardial infarction; H91.90 Unspecified hearing loss, unspecified ear; Z71.6 Tobacco abuse counseling; F17.210 Nicotine dependence, cigarettes, uncomplicated; Z79.82 Long term (current) use of aspirin; Z79.899 Other long term (current) drug therapy; Z90.79 Acquired absence of other genital organ(s); Z90.721 Acquired absence of ovaries, unilateral
CPT/HCPCS: 73501; 80048; 85025; 86850; 86891; 86900; 86901; 88305; 88311

== ENCOUNTER → 2020-04-03 | Outpatient (CLI) | payer OTHER ==
--- NOTE | 2020-04-03 10:24 | ECHOF ---
Referral Reason:R01.1 MEASUREMENTS -------- HEIGHT: 160.0 cm WEIGHT: 77.1 kg BP: RVIDd: 2.8 cm (< 3.3) IVSd: 1.3 cm (0.6 - 1.1) LVIDd: 3.7 cm (3.9 - 5.3) LVPWd: 1.3 cm (0.6 - 1.1) IVSs: 1.7 cm LVIDs: 1.8 cm LVPWs: 1.4 cm LAESV Index (A-L): 21.33 ml/m Ao Diam: 2.7 cm (2.0 - 3.7) AV Cusp: 1.7 cm (1.5 - 2.6) LA Diam: 3.0 cm (2.7 - 3.8) MV EXCURSION: 15.965 mm (> 18.000) MV EF SLOPE: 49 mm/s (70 - 150) EPSS: 0.2 cm MV E Kole: 0.99 m/s MV DecT: 167 ms MV A K[place]: 0.67 m/s MV E/A Ratio: 1.46 RAP: 5.00 mmHg RVSP: 11.42 mmHg FINDINGS -------- Sinus rhythm. This was a technically good study. The left ventricular size is normal. There is mild concentric left ventricular hypertrophy. Overa ll left ventricular systolic function is normal with, an EF between 55 - 60 %. The right ventricle is normal in size. The left atrial size is normal. Normal LA size by volume 22+/-6 ml/m2. The right atrial size is normal. The aortic valve is trileaflet and appears structurally normal. The mitral valve is normal. [id number] mitral regurgitation is present. The tricuspid valve appears structurally normal. Mild tricuspid regurgitation present. Right vent ricular systolic pressure is normal at < 35 mmHg. There is no pulmonic regurgitation present. The aortic root size is normal. Normal inferior vena cava with normal inspiratory collapse consistent with estimated right atrial pre ssure of 5 mmHg. There is no pericardial effusion. CONCLUSIONS -------- 1. Sinus rhythm. 2. This was a technically good study. 3. The left ventricular size is normal. 4. There is mild concentric left ventricular hypertrophy. 5. Overall left ventricular systolic function is normal with, an EF between 55 - 60 %. 6. The right ventricle is normal in size. 7. The left atrial size is normal. 8. Normal LA size by volume 22+/-6 ml/m2. 9. The right atrial size is normal. 10. The aortic valve is trileaflet and appears structurally normal. 11. The mitral valve is normal. 12. [id number] mitral regurgitation is present. 13. The tricuspid valve appears structurally normal. 14. Mild tricuspid regurgitation present. 15. Right ventricular systolic pressure is normal at < 35 mmHg. 16. There is no pulmonic regurgitation present. 17. The aortic root size is normal. 18. Normal inferior vena cava with normal inspiratory collapse consistent with estimated right atrial pressure of 5 mmHg. 19. There is no pericardial effusion. SPRING FITTER HELPER: Brigida Anderson RDCS
== END | disposition home or self-care (01) ==
LOC: RADECHMAIN 08:30
PROVIDERS: ATTEND Family Medicine
DX: I08.1 Rheumatic disorders of both mitral and tricuspid valves (principal)
CPT/HCPCS: 93306